=== PATIENT | female | born 1960 | race Caucasian/White ===

== ENCOUNTER → 2017-11-03 | Outpatient (CLI) | payer BC | LOC: MC.RAD 13:50 | DX: Z12.31 Encounter for screening mammogram for malignant neoplasm of breast (principal) ==

== ENCOUNTER → 2018-02-23 | Outpatient (CLI) | payer BC | LOC: MHCPAIN 10:54 | DX: G89.29 Other chronic pain (principal); M47.817 Spondylosis without myelopathy or radiculopathy, lumbosacral region; M54.16 Radiculopathy, lumbar region; M53.3 Sacrococcygeal disorders, not elsewhere classified; M48.061 Spinal stenosis, lumbar region without neurogenic claudication | CPT/HCPCS: G0463 ==

== ENCOUNTER → 2018-03-15 | Outpatient (CLI) | payer BC ==
[~2018-03-15] VITALS: Ht 165.1 cm; Wt 66.0 kg
[~2018-03-15] MED LIST: CYMBALTA 60MG60 MG PO; MULTI VITAMINS1 TAB PO; NEXIUM 20MG20 MG PO
[2018-03-15 12:57] VITALS: BP 126/79; PULSE 92
[2018-03-15 14:45] VITALS: BP 132/82; PULSE 88
== END ==
LOC: COL.RAD 03-13 13:30
DX: D34 Benign neoplasm of thyroid gland (principal)